=== PATIENT | female | born 1965 | race Caucasian/White ===

== ENCOUNTER → 2021-01-24 09:35 | Outpatient (CLI) | payer SELFPAY ==
--- NOTE | ~2021-01-24 | XR_ITS ---
EXAMINATION: XR hand RT 2V INDICATION: Right hand pain TECHNIQUE: Two views of the right hand are obtained COMPARISON: None available FINDINGS: Bone alignment is normal. There is no fracture. There is mild osteoarthritis of multiple in terphalangeal joints. Soft tissues are normal. IMPRESSION: 1. Mild osteoarthritis without acute findings. Reviewed, dictated and finalized at location A.
== END ==
PROVIDERS: PCP Family Medicine; Visit Provider Family Medicine
DX: M25.50 Pain in unspecified joint (principal); L40.9 Psoriasis, unspecified; M19.041 Primary osteoarthritis, right hand
CPT/HCPCS: 73120

== ENCOUNTER 2021-01-31 09:17 | Outpatient (CLI) | payer SELFPAY ==
[2021-02-03 21:26] LABS: ANA Cascade Screen Negative (Negative)
[2021-02-04 11:14] LABS: CRP, High Sensitivity 4.3 mg/L (***)
== END 2021-01-31 09:18 | disposition home or self-care (01) ==
PROVIDERS: PCP Family Medicine; Visit Provider Family Medicine
DX: L40.9 Psoriasis, unspecified (principal); M25.50 Pain in unspecified joint
CPT/HCPCS: 36415; 86038; 86141

== ENCOUNTER → 2021-07-04 09:48 | Outpatient (CLI) | payer SELFPAY ==
--- NOTE | ~2021-07-04 | XR_ITS ---
EXAMINATION: HAND-JORGE ARTHRITIS 3+VIEWS DATE: 07/04/2021 10:56 INDICATION: Polyarthritis TECHNIQUE: Posteroanterior, lateral, and oblique views of the left and of the right hands as well as a ballcatchers view of both hands were obtained. COMPARISON: 01/24/2021 FINDINGS: Bone alignment is normal. No fracture. Mild polyarticular osteoarthritis at the bilateral first carpo metacarpal joints and at multiple predominantly distal interphalangeal joints at both hands. No erosi ons to suggest inflammatory arthritis. IMPRESSION: 1. Typical distribution of mild polyarticular osteoarthritis at both hands. Reviewed, dictated and finalized at location A. ER OPERATOR
--- NOTE | ~2021-07-04 | XR_ITS ---
EXAMINATION: XR sacroiliac joints min 3V DATE: 07/04/2021 10:56 INDICATION: Polyarthritis. TECHNIQUE: 3 views of the sacroiliac joints were obtained. COMPARISON: CT abdomen and pelvis 06/16/2010 FINDINGS: Bone alignment is normal. No fracture. The sacroiliac joints are normal. IMPRESSION: 1. Normal sacroiliac joints. Reviewed, dictated and finalized at location A. OR MAINFRAME PROGRAMMER ANALYST
== END ==
PROVIDERS: PCP Family Medicine
DX: M19.041 Primary osteoarthritis, right hand (principal); M19.042 Primary osteoarthritis, left hand
CPT/HCPCS: 72202; 73130